=== PATIENT | female | born 1940 | race Caucasian/White ===

== ENCOUNTER 2021-02-03 23:53 | Inpatient (IN) | payer OTHER ==
[2021-02-04 01:27] VITALS: BP 160/53; BMI 17.0
--- NOTE | 2021-02-04 01:27 | NUR ---
NEW ADMIT TO DOCTOR EDILIA FROM [facility] RELATED TO ALTERED THOUGHT PROCESS. RECEIVED VIA EMS. PT IS VERY CONFUSED UPON ARRIVAL. SHE THINKS SHE IS IN A HOME AND IF SHE LAYS IN HER BED ITS HER CASKET. TEARFUL AT TIMES THINKING SHE IS GOING TO GET KILLED. STATES SHE IS [age] YEARS OLD AND HOW COULD WE KILL A CHILD. CALLED AND SPOKE WITH HER DAUGHTER "RAJ" AND HER "DON". ADMIT CONSENT RECEIVED. CODE STATUS OF DNR RECEIVED. PATIENT CODE OF 8305 GIVEN TO FAMILY. FAMILY STATES SHE WAS ON HOSPICE AND WAS TAKEN OFF AND HAS HOME HEALTH NOW. FAMILY STATES HER REGULAR DOCTOR IS DR CASAS AND HE HAD TALKED ABOUT A 24 HR URINE FOR HEAVY METAL TESTING. FAMILY STATES SHE HAS FALLEN TWO TIMES IN THE LAST WEEK AND HAS PAIN AND BRUISING. SHE ALSO STATES SHE THINKS SHE MAY HAVE A FRACTURE BUT [facility] DID NOT XRAY IT. SHE STATES THAT SHE MAY HAVE A FRACTURE.
[2021-02-04] MEDS ORDERED: GEODON20 MG PO (02:23)
[2021-02-04] MEDS ORDERED: ZOFRAN4 MG PO (02:24)
[2021-02-04] MEDS ORDERED: ATIVAN0.5 MG PO (02:25)
[2021-02-04 08:21] LABS: BASOPHILS 0.3 % (0-2); EOSINOPHILS 2.6 % (0-7); HEMATOCRIT 39.1 % (36.0-48.0); HEMOGLOBIN 12.8 g/dL (12-16); IMMATURE GRANULOCYTES 0.1 % (0-5); LYMPHOCYTE ABS# 1.87 10x3/uL (1.18-3.74); LYMPHOCYTES 24.5 % (15-50); MCHC 32.7 g/dL (31.0-37.0); MCV 91.8 fL (80.0-100.0); MEAN PLATELET VOLUME 9.5 fL (7.4-10.4); NEUTROPHIL ABS# 4.93 10x3/uL (1.56-6.13); NEUTROPHILS 64.5 % (40-80); PLATELET COUNT 217 10x3/uL (130-400); RBC 4.26 10x6/uL (4.00-5.40); RDW 14.8 % (11.5-14.5); WBC 7.6 10x3/uL (4.8-10.8)
[2021-02-04 08:56] LABS: ALBUMIN 4.2 g/dL (3.4-5.0); ANION GAP 14.1 mmol/L (8-16); BILIRUBIN - TOTAL 0.84 mg/dL (0.2-1.3); CALCIUM 9.8 mg/dL (8.5-10.1); CARBON DIOXIDE 26.5 mmol/L (21.0-32.0); CHOL - HDL RATIO 4.2 ratio (2.3-4.1); CREATININE - SERUM 1.4 mg/dL (0.6-1.3); LDL-HDL RATIO 2.8 ratio (1.5-3.5); POTASSIUM - SERUM 3.6 mmol/L (3.5-5.1); PROTEIN - SERUM 6.8 g/dL (6.4-8.2); THYROID STIMULATING HORMONE 14.25 uIU/mL (0.36-3.74)
[2021-02-04 09:39] VITALS: Wt 51.4 kg
[2021-02-04 10:45] VITALS: BP 137/81
--- NOTE | 2021-02-04 13:12 | NUR ---
The patient is awake and she is paranoid and she believes a male patient is her spouse and she keeps saying that we are going to kill her and she is asking for "Don" She says that is her 's name. She is very anxious and she is delusional, has mentioned feeding the chickens, someone trying to kill her and she is tearful, crying and yelling. Ativan 0.5 mg and Haldol 2 mg IM in left hip provided.
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
--- NOTE | 2021-02-04 18:42 | NUR ---
Rec'd patient this am lying in bed. She is very nervous with shaking hands, She required 2 occasions of IM Ativan and Haldo and then PO Ativan and Halol. She has sat most of the afternoon at the nurses station and one to one with the nurse. She is med compliant with alot of enouragment. She participated with the other patients and AD in group therapy/activities. She attempts to rise from w/c and ambulate alone but requires some assistance.
[2021-02-04 20:00] VITALS: BP 173/59
--- NOTE | 2021-02-04 21:31 | NUR ---
RECEIVED PATIENT ON UNIT, SHE IS VERY CONFUSED, SHE IS VERY EASILY AGITATED. COMPLIANT WITH MEDS, HOWEVER SHE TOOK HER MEDS CRUSHED WITH APPLESAUCE BUT SHE THREW THE SPOON. SHE ONLY KNOWS HER NAME. WILL FOLLOW POC
--- NOTE | 2021-02-05 00:31 | NUR ---
PATIENT VERY ANXIOUS, GRABBING AT STAFF AND BEGGING TO STAY WITH HER, SHE WAS FEARFUL ABOUT DYING. SHE WAS GIVEN HALDOL AND ATIVAN @ 2342 IM. RESULTS WERE EFFECTIVE.
[2021-02-05 13:12] LABS: RAPID PLASMA REAGIN Reactive (Non Reactive); TREPONEMA PALLIDUM AB Non Reactive (Non Reactive)
--- NOTE | 2021-02-05 16:01 | PSY ---
PATIENT NAME:HIREN TAVERAS MEDICAL RECORD: [id number] : 36 LOCATION:[facility] ADMISSION DATE: 02/03/21 ACCOUNT: [id number] PSYCHIATRIC EVALUATION DATE OF EVALUATION: 02/04/21 IDENTIFYING DATA: The patient is 80 years old and she is admitted on a voluntary basis. CHIEF COMPLAINT: Hallucinations. HISTORY OF PRESENT ILLNESS: The patient is transferred to us from the [facility] emergency department. She presented there yesterday evening because people were in her house and trying to hurt her. She believed that she was having a baby and was very distressed about this. She also thought that she was in a home and refused to get into the bed because she believed it was a casket. When asked how old she is she says 1. She is very distressed, very confused and not giving good information. PAST MEDICAL HISTORY: Significant for hypothyroidism, Sjogren disease, coronary artery disease. PAST SURGICAL HISTORY: Bilateral hip replacements. PAST PSYCHIATRIC HISTORY: Denied by the patient, but again she is unreliable. FAMILY HISTORY: Unknown. ALLERGIES: No known drug allergies. CURRENT MEDICATIONS: Include Geodon and Zofran. SOCIAL HISTORY: The patient is . She has one son and one daughter. She has no history of drug or alcohol abuse and no history of cigarette smoking and no known history of abuse. MENTAL STATUS EXAMINATION: The patient is awake, alert and oriented to person only. Her mood is anxious. Her affect is constricted. Thought processes are disorganized and she has severe impairment of her memory, concentration and abstraction abilities. ASSESSMENT: AXIS I: Vascular dementia. AXIS II: None. AXIS III: Coronary artery disease, Sjogren syndrome, hyperlipidemia, hypothyroidism. AXIS IV: Moderate. AXIS V: Global assessment of functioning is 25. PLAN: At this time, the patient is admitted to the hospital secondary to bizarre hallucinations associated with a dementing illness. Her underlying thyroid abnormality will be corrected and she will be started on mood stabilizing and memory enhancing medications. Her long-term prognosis is guarded. TRANSINT:[id number] Voice Confirmation ID: [id number] DOCUMENT ID: [id number] ROCK JUAN MD at 1603 CC: [id number] DICTATION DATE: 02/04/21 1632 FAMILY AND CONSUMER SCIENCE PROFESSOR: 02/04/212030 ADM IN [facility] [address] [id number]
--- NOTE | 2021-02-05 17:42 | NUR ---
Patient rec'd this am sitting in a W/C. She is med compliant and takes meds without difficulty. She is A/O times 1 to person. She has had no Hallucinations. She has demonstrated no aggressive behavior with staff today. She has been quieter today. She was delusional yest. thinking her bed was a casket. She is able to be directed and redirected. She participated in group therapy and activites. She is encouraged to participate and offered positive feedback.
[2021-02-05 20:00] VITALS: BP 146/71
--- NOTE | 2021-02-05 23:44 | NUR ---
B) Patient is alert and oriented to to person, calm and cooperative, social with staff and peers, I) Administered scheduled medications as ordered, assisted with needs, R) Medication compliant. pleasant and friendly toward staff P) Continue plan of care.
[2021-02-06 09:10] VITALS: BP 159/77
--- NOTE | 2021-02-06 09:52 | NUR ---
Nutrition Follow-up Diet: Regular + Ensure TID PO intake: 0-30% x last 3 meals, does not appear to be drinking Ensure Last BM: none recorded since admit Wt: 99# (02/04/21) Meds noted: Fiorella ESCOBAR (started 02/06/21) Recommend: -Continue current diet and oral nutrition supplement. Will continue to honor food preferences. Continue encouraged PO intake at meal time. Hopefully appetite stimulant will start working soon. -RD will follow-up within 3-4 days
[2021-02-06 10:55] VITALS: BP 159/77
--- NOTE | 2021-02-06 18:29 | NUR ---
RECEIVED THIS AM SITTING UP IN CHAIR.IS ORIENTED TO SELF .COMPLIANT WITH STAFF AND MEDS.NO AGGRESSION OR HALLUCINATIONS OBSERVED.WILL CONTINUE WITH CURRENT PLAN OF CARE,MONITOR FOR CHANGES AND SAFETY.
[2021-02-06 20:00] VITALS: BP 143/75
--- NOTE | 2021-02-06 22:28 | NUR ---
PT IS ALERT AND ORIENTED TO SELF ONLY. SHE HAS POOR INSIGHT INTO HER SITUATION. SHE IS ABLE TO AMBULATE ON HER OWN WITHOUT ASSIT. OBSERVED RUMAGING THROUGH HER BELONGINGS. CALM AND COOPERATIVE WITH STAFF. COMPLIANT WITH ALL MEDICATIONS. EASY TO REDIRECT.
[2021-02-07 07:38] VITALS: BP 105/47
[2021-02-07 20:00] VITALS: BP 118/62
--- NOTE | 2021-02-07 21:29 | NUR ---
PT IS ALERT AND ORIENTED TO SELF AND AT TIMES SITUATION. ABLE TO AMBULATE ON HER OWN. PLEASANT WITH STAFF. RELATES THAT SHE IS SO EXCITED TO SEE HER FAMILY TOMORROW. PROVIDED HS SNACK. COMPLIANT WITH ALL MEDICATIONS. EASY TO REDIRECT. MONITOR FOR SAFETY.
[2021-02-08 08:39] VITALS: BP 155/58
--- NOTE | 2021-02-08 16:24 | NUR ---
Patients spouse here to visit
--- NOTE | 2021-02-08 17:24 | NUR ---
RECEIVED IN PATIENT ROOM. CALM AND COOPERATIVE WITH CARE AND ASSESSMENT. YELLING OUT "WHERE IS MY BABY?" VERY FEARFUL. BELIEVES SOMEONE IS GOING TO HURT HER. BECOMES TEARFUL. REDIRECT AND REORIENT NEEDED. EATING DINNER AT THIS TIME. CONTINUE PLAN OF CARE.
--- NOTE | 2021-02-08 20:07 | NUR ---
RECEIVED IN BEDROOM. WITH MHT AT BEDSIDE. CALM AND COOPERATIVE WITH CARE AND ASSESSMENT. NO SIGNS OF HALLUCINATIONS. NO SIGNS OF AGGRESSION. REDIRECT AND REORIENT NEEDED. CONTINUES TO REST QUIETLY IN BED. CONTINUE PLAN OF CARE.
[2021-02-08 21:31] VITALS: BP 122/53
--- NOTE | 2021-02-09 10:59 | NUR ---
Nutrition Follow-up: Diet: Regular +Ensure TID PO intake: ~24% average x last 6 meals Last BM: none recorded since admit. At least x 6 days now. Wt: 102.2# (02/08/21); Admit Wt: 99# (02/04/21) Meds noted: miralax, megace ES. No new chem labs. Recommend: -Continue regular diet and Ensure TID. -Continue appetite stimulant. -Continue bowel regimen for BM regularity. Hopefully regularity will help improve appetite. -If PO intake does not improve, MD may consider nutrition support. -RD will follow-up 02/11/21.
--- NOTE | 2021-02-09 17:30 | NUR ---
RECEIVED IN HALLWAY OUTSIDE OF NURSES STATION. VERY FEARFUL OF OTHER PATIENT'S COMING NEAR HER. BECOMES TEARFUL. NO HALLUCINATIONS NOTED. REDIRECTED AND REORIENTED NEEDED. EATING DINNER AT THIS TIME. CONTINUE PLAN OF CARE.
--- NOTE | 2021-02-09 20:53 | NUR ---
RECEIVED IN HALLWAY. MOVING ABOUT IN A WHEELCHAIR. CONFUSED. RESTLESS. FEARFUL THAT A PEER WILL HURT HER. CALM AND COOPERATIVE WITH CARE AND ASSESSMENT. NO SIGNS OF HALLUCINATIONS AT THIS TIME. NO SIGNS OF AGGRESSION. RESTING IN BED WITH EYES CLOSED. CONTINUE PLAN OF CARE.
[2021-02-09 22:28] VITALS: BP 109/52
[2021-02-10 03:08] LABS: LEAD 2 ug/dL (0-4)
[2021-02-10 08:00] VITALS: BP 124/47
--- NOTE | 2021-02-10 11:27 | NUR ---
RECEIVED IN PATIENT ROOM. RESTING IN BED WITH EYES CLOSED. CALM AND COOPERATIVE WITH CARE AND ASSESSMENT. VERY FEARFUL OF OTHER PATIENTS. EXCESSIVELY WORRIED THAT OTHER PATIENTS ARE GOING TO HARM HER. REDIRECT AND REORIENT NEEDED. EATING LUNCH AT THIS TIME. CONTINUE PLAN OF CARE.
--- NOTE | 2021-02-10 19:44 | NUR ---
RECEIVED IN BEDROOM. RESTING QUIETLY IN BED WITH EYES OPEN. CALM AND COOPERATIVE WITH CARE AND ASSESSMENT. NO SIGNS OF HALLUCINATIONS. NO SIGNS OF AGGRESSION. REDIRECT AND REORIENT NEEDED. CONTINUES TO REST QUIETLY IN BED. CONTINUE PLAN OF CARE.
--- NOTE | 2021-02-10 20:27 | NUR ---
PATIENT CONTINUES TO BE FEARFUL OF A PEER. NOTED ANXIETY.
[2021-02-10 21:38] VITALS: BP 115/45
--- NOTE | 2021-02-11 08:00 | NUR ---
Received patient in room. Resting in bed with eyes closed. Calm and cooperative with assessment and care at this time. Patient appears very fearful of the other patients at this time. Excessively worried that other patients are going to harm her. Patient ensured per staff that she is safe on the correction unit. Redirect and reorient as needed. Prescribed medications provided as ordered. med compliant. Will cpoc.
[2021-02-11 09:34] VITALS: BP 132/85
[2021-02-11 09:36] VITALS: BP 130/66
[2021-02-11 09:48] VITALS: BP 132/85
--- NOTE | 2021-02-11 10:08 | NUR ---
Nutrition Re-Assessment Diet: Regular + Ensure TID PO intake: ~77% average x last 6 meals Last BM: 02/10/21 Wt: 102.2# (02/08/21); Admit Wt: 99# (02/04/21) Meds noted: megace ES, miralax. No new chem labs Estimated nutrition needs and nutrition diagnosis remain unchanged from initial nutrition assessment at this time. Patient is currently progressing towards meeting nutrition goals. PO intake has improved greatly. Recommendations/Interventions: -Recommend continue current diet and oral nutrition supplement. Will continue to honor food preferences. -Recommend continue appetite stimulant. -RD will follow-up within 7 days.
--- NOTE | 2021-02-11 11:02 | NUR ---
glass processing worker met with patient's to discuss discharge planning needs, patient's condition, and available community resources. Mr. Noe stated he sees an improvement in his . He voiced appreciation and understanding.
[2021-02-11 19:30] VITALS: BP 135/57
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
[2021-02-12 08:15] VITALS: BP 147/79
--- NOTE | 2021-02-12 17:50 | NUR ---
PT SITTING AND SOCIALIZING WITH PEERS. PT TEARFUL AT TIMES. UNABLE TO REDIRECT AT THIS TIME. COMPLIANT WITH MEDS, VITALS AND ASSESSEMENTS. WILL CONT PLAN OF CARE.
[2021-02-12 20:00] VITALS: BP 144/63
--- NOTE | 2021-02-12 23:17 | NUR ---
PT IS ALERT AND ORIENTED TO SELF AND SITUATION. SHE IS RECEIVED IN HER BED WITH EYES CLOSED. SHE RELATES THAT SHE IS VERY CONFUSED AND IS READY FOR BREAKFAST NOW. COMPLIANT WITH ALL MEDICATIONS. EASY TO REDIRECT.
[2021-02-13 09:26] VITALS: BP 141/61
--- NOTE | 2021-02-13 14:36 | NUR ---
ALERT, CALM, COOPERATIVE, CONFUSED. MEDS ADMIN PER ORDERS WITH COMPLETE MED COMPLIANCE NOTED. NO ADVERSE BEHAVIORS NOTED. CONTINUE PLAN OF CARE DIRECTED.
--- NOTE | 2021-02-13 22:28 | NUR ---
PATIENT IN HER ROOM SLEEPING, SHE WAS COMPLIANT WITH MEDS. SHE IS CONFUSED. EASILY REDIRECTED. SHE CAN MAKE HER NEEDS KNOWN. WILL FOLLOW POC
[2021-02-14 00:03] VITALS: BP 125/48
[2021-02-14 09:11] VITALS: BP 136/48
--- NOTE | 2021-02-14 18:46 | NUR ---
Patient rec'd this am up in a w/c. She is med compliant and takes crushed and placed in food. She is anxious all day and continues to ask staff over and over about "going to bed" "when?". If a staff member walks by, she stops them and ask questions.She needs help with ADLs and meals. She sat with other patients today in the dining room and conversed with them but still would ask staff over and over about "going to bed". She is difficult to direct and redirect. Her daughter came to visit her today at family visits.
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
[2021-02-14 20:00] VITALS: BP 112/33
--- NOTE | 2021-02-14 21:02 | NUR ---
RECEIVED PATIENT IN HER ROOM, SHE IS CONFUSED, PLEASANT, CAN MAKE HER NEEDS KNOWN, COMPLIANT WITH HER MEDS. NO PARANOIA NOTICED. WILL FOLLOW POC
[2021-02-15 09:53] VITALS: BP 123/71
--- NOTE | 2021-02-15 11:52 | NUR ---
RECEIVED PATIENT IN BED WITH EYES CLOSED. RESPONDS TO VERBAL STIMULI. CALM AND COOPERATIVE WITH ASSESSMENT AT THIS TIME. PATIENT IS ALERT tO PERSON ONLY. PRESCRIBED MEDICATIONS PROVIDED ORDERED. MED COMPLIANT AT THIS TIME. REDIRECT AND REORIENT NEEDED. NO BEHAVIORS NOTED AT THIS TIME. FALL PRECAUTIONS IN PLACE FOR SAFETY. WILL CONTINUE PLAN OF CARE.
[2021-02-15 19:30] VITALS: BP 116/38
--- NOTE | 2021-02-15 21:07 | NUR ---
PATIENT RECEIVED IN HER ROOM, SHE IS CONFUSED, PLEASANT, SHE CAN MAKE HER NEEDS KNOWN. SHE IS COMPLIANT WITH MEDS. WILL FOLLOW POC
[2021-02-16 11:59] VITALS: BP 130/70
--- NOTE | 2021-02-16 12:00 | PN ---
PATIENT:HIREN TAVERAS MEDICAL RECORD: [id number] LOCATION:[facility] ADMISSION DATE: 02/03/21 PROGRESS NOTE DATE OF SERVICE: 02/05/2021 SUBJECTIVE: The patient is 80 years old and she is admitted to the hospital secondary to psychotic symptoms. She also has evidence of a very clear dementia. New information has come to light today regarding her longitudinal history. The daughter who frankly is speaking in a way that is inconsistent with reality reports that the patient has a history of bipolar disorder and that there is a very strong history of bipolar disorder in her family. The patient has been reporting some bizarre things about babies and people trying to hurt her and being poisoned with heavy metals. The daughter endorses all of those. Says that they are true and in addition to this, there is a conspiracy where there is some sort of an organization that is seeking to hurt her. ASSESSMENT: 1. Vascular dementia. 2. Bipolar disorder. PLAN: The patient should be started on lithium, but her creatinine is too high. I am going to start her on Depakote for bipolar disorder. TRANSINT:[id number] Voice Confirmation ID: [id number] DOCUMENT ID: [id number] ROCK JUAN MD at 1200 CC: [id number] DICTATION DATE: 02/05/21 171 BAG SEALER: 02/05/21 210 ADM IN [facility] [address] [place] [address]
--- NOTE | 2021-02-16 15:46 | NUR ---
RECEIVED PATIENT IN BED WITH EYES OPEN. AWAKE AND ALERT TO PERSON ONLY. CALM AND COOPERATIVE WITH ASSESSMENT AT THIS TIME. PRESCRIBED MEDICATIONS PROVIDED ORDERED. MED COMPLIANT AT THIS TIME. PATIENT HAS NOT BEEN TEARFUL THIS SHIFT. PATIENT DOES HAVE ANXIETY AT TIMES. REDIRECT AND REORIENT PER STAFF NEEDED. FALL PRECAUTIONS IN PLACE FOR SAFETY. WILL CONTINUE PLAN OF CARE.
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
[2021-02-16 22:10] VITALS: BP 128/47
--- NOTE | 2021-02-16 22:28 | NUR ---
PT IS ALERT AND ORIENTED TO SELF ONLY, SHE KNOWS SHE IS IN THE HOSPITAL SITUATION. SHE C/O SORE TONGUE AND RELATES SHE IS FEARFUL OF CHOCKING. SHE REQUESTS THAT SOMEONE STAY WITH HER UNTIL SHE FINISHED TAKING HER MEDICATION. SHE WORRIES ABOUT VISITATION. SHE VOICES MANY FEARS. COMPLIANT WITH ALL MEDICATION. DIFFICULT TO REDIRECT. MONITOR FOR SAFETY.
[2021-02-17 08:00] VITALS: BP 145/63
--- NOTE | 2021-02-17 11:47 | NUR ---
SITTING IN BED AWAKE AND ALERT X1. CALM AND COOPERATIVE WITH ASSESSMENT AT THIS TIME. PRESCRIBED MEDICATIONS PROVIDED ORDERED. MED COMPLIANT AT THIS TIME. PATIENT CONTINUES TO BE VERY TEARFUL AND FEARFUL AT THIS TIME. PATIENT CONTINUES TO REQUEST STAFF TO STAY IN THE ROOM WHILE SHE IS EATING DUE TO SHE IS AFRAID THAT SHE MAY CHOKE. STAFF CONSULTED SPEECH. NO PROBLEM SWALLOWING NOTED PER NURSING STAFF AT THIS TIME. WILL REORDER SPEECH EVAL. REDIRECT AND REORIENT NEEDED. FALL PRECAUTIONS IN PLACE FOR SAFETY. WILL CONTINUE PLAN OF CARE.
--- NOTE | 2021-02-17 15:24 | PN ---
PATIENT:HIREN TAVERAS MEDICAL RECORD: [id number] LOCATION:[facility] ADMISSION DATE: 02/03/21 PROGRESS NOTE DATE OF SERVICE: 02/16/2021 SUBJECTIVE: The patient's case was discussed with staff. She has no new complaint. OBJECTIVE: The patient has improved significantly. She has ongoing cognitive impairment, but is pleasantly confused. She has no mood lability. ASSESSMENT: 1. Vascular dementia. 2. Bipolar disorder. PLAN: Current medicines have been reviewed and will be maintained. I anticipate she can be discharged soon. TRANSINT:[id number] Voice Confirmation ID: [id number] DOCUMENT ID: [id number] ROCK JUAN MD at 1524 CC: [id number] DICTATION DATE: 02/16/21 1645 PAINTINGS CONSERVATOR: 02/17/21 0101 ADM IN [facility] [address] [place] [address]
[2021-02-17] MEDS ORDERED: LIPITOR10 MG PO (15:44)
[2021-02-17] MEDS ORDERED: ZOLOFT50 MG PO (15:45)
[2021-02-17] MEDS ORDERED: LEVOTHYROXINE75 MCG PO (15:45)
[2021-02-17] MEDS ORDERED: MIRALAX17 GM PO (15:45)
[2021-02-17] MEDS ORDERED: TRAZODONE HCL50 MG PO (15:45)
[2021-02-17] MEDS ORDERED: PERPHENAZINE2 MG PO (15:45)
[2021-02-17] MEDS ORDERED: DEPAKOTE SPRIN125 MG PO (15:45)
[2021-02-17] MEDS ORDERED: Megace ES [CHEMO] PO (15:46)
--- NOTE | 2021-02-17 20:00 | NUR ---
PATIENT RECEIVED IN HALLWAY SITTING IN WHEELCHAIR. SHE IS CONFUDED AND PLEASANT. SHE IS ABLE TO MAKE HER NEEDS KNOWN. SHE IS COMPLIANT WITH MEDICATIONS. WILL FOLLOW PLAN OF CARE.
[2021-02-17 20:16] VITALS: BP 142/48
[2021-02-18 08:00] VITALS: BP 137/54
--- NOTE | 2021-02-18 11:00 | NUR ---
PT SITTING IN W/C AWAITING D/C WITH [facility] AT THIS TIME. CALLED STATED HE WAS HERE FOR PICK-UP. STAFF MEMBERS FOUND AND STAFF WHEELED PT TO CAR FOR S/C. ALL PERSONAL BELONINGS SENT WITH PT. PAPERWORK SENT WITH PT. MEDS E-SCRIPTED TO PHARMACY. PAPERWORK FAXED TO [facility] OFFICE. MEDICATIONS REVIEWED.
--- NOTE | 2021-02-18 11:24 | NUR ---
Patient rec'd this am lying in bed. She is A/O times 1 to person. She has been med compliant. She is very confused and fearful. She is calm and most of the time, she is cooperative but she becomes very tearful at any given time. She has stayed in her room most of the morning and did not want to get OOB. She was willing but cognitively unable to complete any interdisciplinary education. Attempted to discuss DC plans to home but patient unable to cognitively recall any information.
--- NOTE | 2021-02-18 15:18 | PN ---
PATIENT:HIREN TAVERAS MEDICAL RECORD: [id number] LOCATION:[facility] ADMISSION DATE: 02/03/21 PROGRESS NOTE DATE OF SERVICE: 02/17/2021 SUBJECTIVE: The patient's case was discussed with staff. She has no new complaint. OBJECTIVE: The patient denies she would seek to harm herself or others. She is impaired cognitively, but is not disruptive in any significant way. ASSESSMENT: Dementia. PLAN: Current medicines have been reviewed. I am going to transition her out of the hospital tomorrow. TRANSINT:[id number] Voice Confirmation ID: [id number] DOCUMENT ID: [id number] ROCK JUAN MD at 1518 CC: [id number] DICTATION DATE: 02/17/21 1541 FACILITY OPERATIONS MANAGER: 02/17/21 2322 DIS IN 02/18/21 [id number] [place] [address]
--- NOTE | 2021-02-19 13:37 | DS ---
PATIENT:HIREN TAVERAS :36 MEDICAL RECORD: [id number] DISCHARGE SUMMARY ADMISSION DATE: 02/03/21 DISCHARGE DATE: 02/18/21 IDENTIFYING DATA: The patient is 80 years old and she is admitted to the hospital on a voluntary basis. CHIEF COMPLAINT: Hallucinations. HISTORY OF PRESENT ILLNESS: The patient was transferred to us from [facility] Emergency Department. She was initially brought to the hospital because people were in her house and trying to hurt her or so, she believed. There was no evidence of this at all. She also believed that she was having a baby and was understandably distressed. She believed that the room she was in is a home and refused to go to bed or lie in the bed because she believed it was a casket. She was displaying a high level of distress associated with these perceptual disturbances. HOSPITAL COURSE: The patient was admitted to the hospital and evaluated from both a medical, psychological, and social standpoint. She was treated with both mood stabilizing and memory enhancing medications and showed improvement through the course of her hospitalization. She was subsequently transitioned home with an absence of psychotic symptoms, but a significant cognitive impairment. Adequate supervision was arranged and she was not representing an acute danger to herself or staff. DISCHARGE DIAGNOSES: AXIS I: Vascular dementia. AXIS II: None. AXIS III: Coronary artery disease, hyperlipidemia, hypothyroidism. AXIS IV: Moderate. AXIS V: Global assessment of functioning is 35. PLAN: At the time of discharge, the patient was not acutely dangerous to herself or others and was tolerating her medications well. Followup is to be with her primary care physician. TRANSINT:[id number] Voice Confirmation ID: [id number] DOCUMENT ID: [id number] ROCK JUAN MD at 1337 CC: [id number] DICTATION DATE: 02/18/21 1619 CONCRETE JOURNEYMAN: 02/19/21 0234 DIS IN 02/18/21 [place] [id number] [place] [id number]
== END 2021-02-18 11:00 | disposition home or self-care (01) | DRG 884 ==
LOC: D.PSYCH 23:53
PROVIDERS: ADMIT Psychiatry & Neurology Psychiatry; ATTEND Psychiatry & Neurology Psychiatry
DX: F01.51 Vascular dementia, unspecified severity, with behavioral disturbance (principal); N17.9 Acute kidney failure, unspecified; E03.9 Hypothyroidism, unspecified; Z20.822 Contact with and (suspected) exposure to COVID-19; I25.10 Atherosclerotic heart disease of native coronary artery without angina pectoris; M35.00 Sjogren syndrome, unspecified; F22 Delusional disorders; E78.5 Hyperlipidemia, unspecified; R63.0 Anorexia; G47.00 Insomnia, unspecified; K59.00 Constipation, unspecified

== ENCOUNTER 2021-04-25 19:05 | Emergency (ER) | payer MEDICARE ==
[~2021-04-25] VITALS: Ht 162.6 cm; Wt 49.9 kg
[~2021-04-25 19:05] MED LIST: ATIVAN0.5 MG PO; DEPAKOTE SPRIN125 MG PO; GEODON20 MG PO; LEVOTHYROXINE75 MCG PO; LIPITOR10 MG PO; MIRALAX17 GM PO; Megace ES [CHEMO] PO; PERPHENAZINE2 MG PO; TRAZODONE HCL50 MG PO; ZOFRAN4 MG PO; ZOLOFT50 MG PO
[2021-04-25 19:20] VITALS: Ht 162.6 cm; Wt 49.9 kg
[2021-04-25 19:33] LABS: BASOPHILS 0.7 % (0-2); EOSINOPHILS 0.3 % (0-7); HEMATOCRIT 39.5 % (36.0-48.0); LYMPHOCYTES 27.4 % (15-50); MCH 30.6 pg (26.0-34.0); MCV 92.9 fL (80.0-100.0); MEAN PLATELET VOLUME 7.4 fL (7.4-10.4); MONOCYTES 8.9 % (2-11); NEUTROPHILS 62.7 % (40-80); RBC 4.26 10x6/uL (4.00-5.40); RDW 14.3 % (11.5-14.5); WBC 6.4 10x3/uL (4.8-10.8)
[2021-04-25 19:40] LABS: CALC OSMOLALITY 282 mosm/kg (275-300); CALCIUM 8.9 mg/dL (8.5-10.1); CARBON DIOXIDE 31.4 mmol/L (21.0-32.0); CHLORIDE - SERUM 105 mmol/L (98-107); CREATININE - SERUM 0.7 mg/dL (0.6-1.3); GLUCOSE 94 mg/dL (74-106); POTASSIUM - SERUM 3.9 mmol/L (3.5-5.1); SODIUM 141 mmol/L (136-145); UREA NITROGEN 17 mg/dL (7-18); eGFR NON AFRICAN AMERICAN 85 mL/min (90-120)
[2021-04-25 19:48] LABS: ALKALINE PHOSPHATASE 40 U/L (30-120); ALT (SGPT) 19 U/L (10-68); BILIRUBIN - TOTAL 0.35 mg/dL (0.2-1.3); PLATELET COUNT 159 10x3/uL (130-400); PROTEIN - SERUM 6.7 g/dL (6.4-8.2)
[2021-04-25 21:11] LABS: BILIRUBIN NEGATIVE (NEGATIVE); KETONE NEGATIVE (NEGATIVE); NITRITE NEGATIVE (NEGATIVE); UROBILINOGEN NORMAL mg/dL (< 2)
[2021-04-25 21:15] LABS: UDS - AMPHET NEGATIVE QUAL (NEGATIVE); UDS - BARB NEGATIVE QUAL (NEGATIVE); UDS - BENZO POSITIVE QUAL (NEGATIVE); UDS - COCAINE NEGATIVE QUAL (NEGATIVE); UDS - OPIATE NEGATIVE QUAL (NEGATIVE); UDS - PCP NEGATIVE QUAL (NEGATIVE); UDS - THC NEGATIVE QUAL (NEGATIVE)
[2021-04-25 21:16] LABS: WHITE CELLS - URINE 0-5 HPF (0-4)
[2021-04-25 21:17] LABS: AMORPHOUS SEDIMENT MODERATE LPF (NONE SEEN); BACTERIA FEW HPF (NONE SEEN); SQUAMOUS EPITHELIAL 0-5 HPF (0-4)
[2021-04-25 21:59] VITALS: BP 110/66
== END 2021-04-25 22:00 ==
LOC: D.ER 19:05
PROVIDERS: Family Medicine
DX: F31.4 Bipolar disorder, current episode depressed, severe, without psychotic features (principal); F41.9 Anxiety disorder, unspecified; G47.00 Insomnia, unspecified